=== PATIENT | female | born 1980 | race Caucasian/White ===

== ENCOUNTER 2017-11-25 09:15 | Inpatient (IN) | payer OTHER, SELFPAY ==
[~2017-11-25] VITALS: Ht 165.1 cm; Wt 99.0 kg
[~2017-11-25 09:15] MED LIST: PRENATABS RX T1 EACH PO
--- NOTE | 2017-12-03 07:36 | NUR ---
12/03/17 0736 Ena Massey REPORT FROM DIRECTOR OF ANALYTICAL DEVELOPMENT.
--- NOTE | 2017-12-03 19:30 | NUR ---
Jello given. Second liter of 1/2 NS finished infusing and replaced with LR at TKO.
--- NOTE | 2017-12-04 09:28 | PR ---
[facility] [address] [facility] [place] [address] Signed PP Progress Notes Datetime Report Generated by CPN: 12/04/2017 09:28 SUBJECTIVE: [id number] Pain: Within normal limits Nausea/Vomiting: Denies Vital Signs: [id number] Vital Signs: Reviewed; Within Normal Limits Notable Details: PP Hgb/Hct = 90./26.6 EXAM: [id number] Abdomen/Uterus: Normal Lochia: Normal Extremities: Normal Incision: Normal IMPRESSION/PLAN/PROCEDURES: [id number] Impression: Normal progression Plan: Continue present management Procedures: None Progress Notes: Doing well, up moving, voiding, without complaint. Signing Physician: Aries Soliman MD CC: *Electronically Signed* 12/04/17 0928 ARIES SOLIMAN MD PATIENT NAME: LAKISHA MARION PROGRESS NOTE DATE OF : 79 PHYSICIAN: ARIES SOLIMAN MD RPT #: [id number] REPORT IS CONFIDENTIAL AND NOT TO BE RELEASED WITHOUT AUTHORIZATION
--- NOTE | 2017-12-04 14:21 | NUR ---
CHECKED ON PT AND FAMILY. BABY SLEEPING SOUNDLY, PT TRYING TO SLEEP, HAS NOT BEEN VERY SUCCESSFUL. AKI GRAMAJO CAME TO TAKE BABY FOR ROUTINE CHECKS, HAD PRAYER WITH PT. WILL FOLLOW NEEDED
--- NOTE | 2017-12-05 10:47 | OR ---
[facility] [address] [facility] [place], [place] [address] Signed DATE OF OPERATION: 12/03/2017 SURGEON: Torsten Guillory MD Patient of Dr. Guillory. PREOPERATIVE DIAGNOSIS: Term , previous section x2. POSTOPERATIVE DIAGNOSIS: Term , previous section x2. PROCEDURE: Repeat low transverse segment section, delivery of live female . PROMOTION OFFICER: Dr. Valdez ANESTHESIA: Spinal. ESTIMATED BLOOD LOSS: 700 mL. COMPLICATIONS: None. DRAINS: Mantilla to bladder. FINDINGS: Live female , Apgars 8 and 9. Weight 7 pounds 4 ounces. Baby in transverse lie with head to the right and backup. Bladder was slightly elevated up to the lower uterine segment. Normal tubes and ovaries bilateral. There was a small peritoneal adhesion on the left lower uterine segment from the bladder flap, otherwise no adhesions present. DESCRIPTION OF PROCEDURE: The patient was brought into the operating room and placed in the supine position. After adequate spinal anesthesia was obtained, she was prepped and draped in usual sterile fashion. A Mantilla catheter was placed in the bladder. A Pfannenstiel skin incision was Electronically Signed By: TORSTEN GUILLORY MD 12/05/17 1047 PATIENT NAME: LAKISHA MARION OPERATIVE REPORT DATE OF : 79 PHYSICIAN: TORSTEN GUILLORY MD REPORT #: [id number] REPORT IS CONFIDENTIAL AND NOT TO BE RELEASED WITHOUT AUTHORIZATION [facility] [address] [place], [place] [address] Signed made through previous surgical scar. Using a scalpel, subcutaneous tissue was dissected with the Bovie. The fascia was nicked with scalpel and extended in transverse fashion. Using curved scissors, the underlying abdominal musculature was bluntly and sharply from the fascia above and below the incision. The abdominal musculature was bluntly and sharply along the midline. The peritoneum was grasped with hemostats, elevated, nicked with Metzenbaum scissors and extended in vertical fashion using Metzenbaum scissors. The David self-retaining retractor was inserted into the incision and tightened in place. The above findings were noted. A small band of bladder flap peritoneum on the left side was cut down with Metzenbaum scissors and the vesicouterine peritoneum elevated with smooth pickups and nicked in the midline and extended in transverse fashion to help lower the bladder somewhat off the lower uterine segment. Baby was noted to be in transverse lie. The lower segment above the bladder did appear wide enough, so a small incision was made in the lower uterine segment above the bladder in the midline using a scalpel and finger dissection used to extend the incision in transverse fashion. again was noted to be in transverse lie with the head on the right and the back up. The arm and cord came through the incision. Once it was opened, an attempt was made to grasp the head and deliver the by head first, but head would not come down, so arm and cord were pushed back up into the fundus and one foot was grasped and carefully brought in the field. The other foot was then identified and brought into the incision and the infant delivered in breech fashion up to the level of the shoulders with the back up now. The arms were individually delivered and the head easily followed. The cord was doubly clamped and cut while the mouth and nose were suctioned with a bulb syringe. The was passed off table in good condition awaiting nurse. The placenta was manually removed and uterine cavity explored the lap pad to remove any retained membranes. Angled stitch of 0 Monocryl was placed in one end of the incision and running locking stitch of 0 Monocryl starting at the other end used to close the incision. The left side did extend all the way to the uterine vessels and so additional stitches were needed on the left angle. This was done by placing hand behind the uterus against the broad ligament to make sure the needle did not pass through and injure any bowel or pelvic structures. Several eluzbz-bs-sowka stitches were used to control the bleeding in the left angle. Second running locking stitch of 0 Monocryl was used to then imbricate the first layer. The entire incision was examined. There was still some bleeding in the midline and several eccyxj-kj-nmxfl stitch of 0 Monocryl suture were used to control this bleeding. The right angle also had small amount of bleeding which was controlled with again by putting hand behind the broad ligament making sure the needle did not go through and through. Did close and control the bleeding in the right angle. Once good hemostasis was obtained, the entire pelvis was irrigated, suctioned and examined. Any superficial bleeding spots were cauterized with the Bovie. The incision was again examined then and now had good hemostasis. The David retractor was removed. The incision again irrigated, suctioned, examined and noted to have good hemostasis, but several raw areas, so Evicel was placed all along the uterine incision to help with further hemostasis. Sheet of ACell was placed over the lower uterine segment Electronically Signed By: TORSTEN GUILLORY MD 12/05/17 1047 PATIENT NAME: LAKISHA MARION OPERATIVE REPORT DATE OF : 78 PHYSICIAN: TORSTEN GUILLORY MD REPORT #: [id number] REPORT IS CONFIDENTIAL AND NOT TO BE RELEASED WITHOUT AUTHORIZATION [facility] [address] [place], [place] [address] Signed to help with healing. The anterior wall peritoneum was then closed using a running stitch of 2-0 Vicryl suture. The abdominal musculature was reapproximated using interrupted stitches of 0 Vicryl suture. The abdominal wall was then irrigated, suctioned and examined. Any bleeding spots cauterized with the Bovie. Powdered ACell sprinkled on the abdominal musculature and then the fascia closed using two running stitches of 0 Vicryl suture meeting in the midline. Subcutaneous tissue was irrigated, suctioned and examined. Any bleeding spots cauterized with the Bovie. The remaining powdered ACell sprinkled on subcutaneous tissue, which was then closed using interrupted stitches of 3-0 Vicryl suture. The skin was reapproximated using skin clips. The patient tolerated the procedure well and went to the recovery room in good condition. The sponge, needle, and instrument counts were correct at the end of the procedure. MD CHANDAN Art/MODL /[id number] Electronically Signed By: TORSTEN GUILLORY MD 12/05/17 1047 PATIENT NAME: LAKISHA MARION OPERATIVE REPORT DATE OF : 78 PHYSICIAN: TORSTEN GUILLORY MD REPORT #: [id number] REPORT IS CONFIDENTIAL AND NOT TO BE RELEASED WITHOUT AUTHORIZATION
--- NOTE | 2017-12-05 10:51 | PR ---
[facility] [address] [place] [address] Signed PP Progress Notes Datetime Report Generated by CPN: 12/05/2017 10:51 SUBJECTIVE: [id number] Pain: Within normal limits Nausea/Vomiting: Denies Vital Signs: [id number] Vital Signs: Reviewed; Within Normal Limits Notable Details: PP Hgb/Hct = 9.0/26.6 EXAM: [id number] Abdomen/Uterus: Normal Lochia: Normal Extremities: Normal Incision: Normal IMPRESSION/PLAN/PROCEDURES: [id number] Impression: Normal progression Plan: Discharge Procedures: None Progress Notes: Doing well, without compalint, ready to go home. Signing Physician: Aries Soliman MD CC: *Electronically Signed* 12/05/17 1051 ARIES SOLIMAN MD PATIENT NAME: LAKISHA MARION PROGRESS NOTE DATE OF : 79 PHYSICIAN: ARIES SOLIMAN MD RPT #: [id number] REPORT IS CONFIDENTIAL AND NOT TO BE RELEASED WITHOUT AUTHORIZATION
== END 2017-12-05 14:05 | disposition home or self-care (01) | DRG 766 ==
LOC: FBC 12-03 05:50
PROVIDERS: ADMIT General Practice
PROC: 10D00Z1 Extraction of Products of Conception, Low, Open Approach (ICD-10-PCS; principal; 2017-12-03 06:45)
DX: O34.211 Maternal care for low transverse scar from previous cesarean delivery (principal); N85.8 Other specified noninflammatory disorders of uterus; O32.2XX0 Maternal care for transverse and oblique lie, not applicable or unspecified; O99.824 Streptococcus B carrier state complicating childbirth; O99.89 Other specified diseases and conditions complicating pregnancy, childbirth and the puerperium; M76.32 Iliotibial band syndrome, left leg; Z86.59 Personal history of other mental and behavioral disorders; Z3A.39 39 weeks gestation of pregnancy; Z37.0 Single live birth
CPT/HCPCS: 01961; 36415; 85027; C1763; J0690; J1170; J1200; J2274; J2370; J2405; J2590; J3010; J7120

== ENCOUNTER 2020-11-11 09:28 | Emergency (ER) | payer OTHER ==
[~2020-11-11] VITALS: Ht 165.1 cm; Wt 93.0 kg
[~2020-11-11 09:28] MED LIST changes: +IBUPROFEN600 MG PO; +OFIRMEV1000 MG/10 IV; +OXYCODON-ACETA1 EAC2 PO; +TYLENOL EXTRA500 MG PO; +ZOFRAN4 MG PO
[2020-11-11] MEDS ORDERED: ONDANSETRON ODT8 MG PO (12:49)
[2020-11-11] MEDS ORDERED: PERCOCET 7.5-31 EACH PO (12:49)
== END 2020-11-11 13:30 | disposition home or self-care (01) ==
LOC: ED 09:28
DX: S89.302A Unspecified physeal fracture of lower end of left fibula, initial encounter for closed fracture (principal); W00.0XXA Fall on same level due to ice and snow, initial encounter; Z87.891 Personal history of nicotine dependence
CPT/HCPCS: 27788; 73610; 99152; 99283-25; J1170; J2405; J2704; J7030

== ENCOUNTER 2020-11-14 08:59 | Day surgery (SDC) | payer OTHER ==
[~2020-11-14] VITALS: Ht 165.1 cm; Wt 90.9 kg
[~2020-11-14 08:59] MED LIST changes: +ONDANSETRON ODT8 MG PO; +PERCOCET 7.5-31 EACH PO
[2020-11-14] MEDS ORDERED: ADVIL200 MG PO (09:23)
--- NOTE | 2020-11-14 09:49 | NUR ---
COVID SWAB OBTAINED , SENT TO [facility] FOR RAPID TESTING, NO COMPLICATIONS
--- NOTE | 2020-11-14 11:28 | NUR ---
OC 1120: CHECKED ON PT, SHE REPORTS THAT SHE WOULD LIKE TO GET UP AND USE THE RESTROOM. SHE IS SET UP WITH A BEDSIDE COMMODE. SHE IS ABLE TO TRANSFER HERSELF FROM BED TO COMMODE, THEN BACK TO BED.
[2020-11-14] MEDS ORDERED: PERCOCET 7.5-31 EACH PO (14:18)
--- NOTE | 2020-11-14 15:12 | NUR ---
PT IS BACK TO FROM PACU. SHE IS C/O A HEADACHE. RATING THE PAIN IN HER ANKLE A 4/10. SHE IS TOLERATING WATER. CALL LIGHT WITHIN REACH. NO ADDITIONAL. NEEDS AT THIS TIME.
--- NOTE | 2020-11-14 15:19 | NUR ---
11/14/20 1519 Ramone,Ligia 1411 PT ARRIVED TO PACU ON 6L VIA MASK, PT MOVING ARMS AND GRABBING AT FACE. RN TRYING TO REORIENT PT TO PACU. VSS. RESP EVEN AND UNLABORED. 1412 PT PULLS O2 MASK OFF HER FACE, O2 SAT 100%.
--- NOTE | 2020-11-14 15:38 | NUR ---
OC 1525: PT IS GIVEN JELLO AND CRACKERS. SHE IS HELPED UP OOB TO BEDSIDE COMMODE WHERE SHE VOIDS QS. SHE IS HELPED BACK INTO BED. IS AT THE BEDSIDE.
--- NOTE | 2020-11-14 15:40 | NUR ---
PT ALERT, ORIENTED AND SUPPORTED BY HER BRIAN. PT IS DISCOURAGED T ACCIDENT, AND IS ENCOURAGING. ANSWERED ALL QUESTIONS ASKED. RT ALEN INTO DO RAPID COVID TEST. PT TOLERATED WELL. GAVE COMFORT, PT REQUESTED I HAVE PRAYER WITH THEM. WILL FOLLOW NEEDED
--- NOTE | 2020-11-14 16:10 | NUR ---
PT HAS MET DC CRITERIA. SHE WOULD LIKE TO GO HOME AT THIS TIME.
--- NOTE | 2020-11-14 16:31 | NUR ---
PT IS GIVEN VERBAL DC INSTRUCTIONS, SHE VERBALIZES UNDERSTANDING. NO QUESTIONS OR CONCERNS AT THIS TIME. SHE IS TAKEN TO VEHICLE VIA WC, SHE IS ABLE TO TRANSFER HERSELF FROM WC TO VEHICLE.
--- NOTE | 2020-11-16 07:46 | OR ---
[facility] [address] [place], [place] [address] Signed DATE OF OPERATION: 11/14/2020 SURGEON: Dariel Riggins MD PREOPERATIVE DIAGNOSES: Left ankle fracture dislocation. POSTOPERATIVE DIAGNOSIS: Left ankle fracture dislocation. PROCEDURE PERFORMED: Open reduction and internal fixation of left ankle, bimalleolar. FACILITIES OPERATIONS TECHNICIAN: None. ANESTHESIA: General. TOURNIQUET TIME: 50 minutes. IMPLANT: Seven hole one-third tubular plate with 10 screws. BRIEF HISTORY: Karen is a 40-year-old female with a painful dislocation of her ankle. This was partially reduced but not completely in the ER. She presented to our clinic. Risks and benefits of operative treatment were discussed with her and she elected to proceed. DESCRIPTION OF PROCEDURE: Once consent was obtained, she was taken to the operating room after adequate anesthesia and she was placed on the operating table. All downside pressure points were well padded and hip bump was placed. The legs were placed in well-padded proximal thigh tourniquet. It should also be noted that she had about 15 to 20 degrees of hyperextension at the knee which may set her up for further injuries. Once the leg was prepped and draped in a standard sterile fashion, we exsanguinated the leg using Esmarch bandage. Tourniquet inflated to 250 mmHg. Standard lateral approach was made to the fibula, taken through the skin and subcutaneous tissue. The fracture was distracted and cleaned of soft tissue debris and reduced and clamped. We were able to get it clamped Electronically Signed By: DARIEL RIGGINS MD 11/16/20 0746 PATIENT NAME: KAREN MARION OPERATIVE REPORT DATE OF : 78 REPORT #: [id number] PHYSICIAN: DARIEL RIGGINS MD PCP: LITTLE LORENZANA PA-C REPORT IS CONFIDENTIAL AND NOT TO BE RELEASED WITHOUT AUTHORIZATION [facility] [address] [place], [place] [address] Signed in anatomic position and placed a standard AO lag screw from anterior to posterior. The clamp was then removed. A seven hole plate was fashioned to fit the lateral malleolus and held with the central screw. This was checked using image intensifier and found to be adequately positioned. The screws were placed and the two distal screws were done with locking screws. Attention was then turned to the posterior malleolus. It was displaced and of a significant size. We then went behind the fibula and dissected back to the posterior tibia. We then placed a percutaneous clamp on the posterior tibia and placed a stab incision anteriorly. The posterior malleolus was worked into position and clamped with the large tenaculum. Two screws were then placed from anterior to posterior, securing the posterior malleolus in near-anatomic reduction. Wound was then copiously irrigated. The lateral wound was closed deep using 3-0 Monocryl, subcutaneous tissue with 3-0 Monocryl and 2-0 nylon for the skin incisions. Wounds were dressed with Acticoat dressing, and Kameron wrap and she was placed in a fracture boot, taken to the recovery room in satisfactory condition. All sponge, needle, and instrument counts were correct. Dariel Riggins MD BA/MODL /[id number] Copies: ~ Electronically Signed By: DARIEL RIGGINS MD 11/16/20 0746 PATIENT NAME: KAREN MARION OPERATIVE REPORT DATE OF : 78 REPORT #: [id number] PHYSICIAN: DARIEL RIGGINS MD PCP: LITTLE LORENZANA PA-C REPORT IS CONFIDENTIAL AND NOT TO BE RELEASED WITHOUT AUTHORIZATION
== END 2020-11-14 16:25 | disposition home or self-care (01) ==
LOC: DS 08:59
PROVIDERS: ATTEND Specialist
PROC: 0QSH04Z Reposition Left Tibia with Internal Fixation Device, Open Approach (ICD-10-PCS; 2020-11-14)
PROC: 3E0T3BZ Introduction of Anesthetic Agent into Peripheral Nerves and Plexi, Percutaneous Approach (ICD-10-PCS; 2020-11-14)
PROC: 3E0T33Z Introduction of Anti-inflammatory into Peripheral Nerves and Plexi, Percutaneous Approach (ICD-10-PCS; 2020-11-14)
PROC: 0QSK04Z Reposition Left Fibula with Internal Fixation Device, Open Approach (ICD-10-PCS; principal; 2020-11-14 12:00)
DX: S82.842A Displaced bimalleolar fracture of left lower leg, initial encounter for closed fracture (principal); G89.18 Other acute postprocedural pain; W01.0XXA Fall on same level from slipping, tripping and stumbling without subsequent striking against object, initial encounter; Z79.1 Long term (current) use of non-steroidal anti-inflammatories (NSAID); Z87.891 Personal history of nicotine dependence
CPT/HCPCS: 01480; 64445; 64447; 73600; 76942; 84703; C1713; C9803; J1100; J2001; J2250; J2405; J2704; J2795; J3010; J3370; J7060; J7121; U0003

== ENCOUNTER 2023-11-13 06:25 | Day surgery (SDC) | payer OTHER ==
[2023-11-10 16:22] VITALS: BP 131/88
[~2023-11-13] VITALS: Ht 165.1 cm; Wt 93.2 kg
[~2023-11-13 06:25] MED LIST changes: +ADVIL200 MG PO; +PREDNISONE20 MG PO
[2023-11-13 06:38] VITALS: BP 128/74
[2023-11-13] MEDS ORDERED: HYDROCODON-ACE1 EA10 PO (09:35)
[2023-11-13] MEDS ORDERED: DICLOFENAC SODI75 MG PO (09:35)
[2023-11-13 10:01] VITALS: BP 107/77
--- NOTE | 2023-11-16 07:02 | OR ---
[facility] [address] [facility] [place], [place] [address] Signed DATE OF OPERATION: 11/13/2023 SURGEON: Dariel Riggins MD PREOPERATIVE DIAGNOSIS: Painful hardware, left ankle. POSTOPERATIVE DIAGNOSIS: Painful hardware, left ankle. PROCEDURE PERFORMED: Removal of hardware deep, left ankle. DETENTION DEPUTY: None. ANESTHESIA: General. TOURNIQUET TIME: 18 minutes. BLOOD LOSS: None. BRIEF HISTORY: Karen is a 43-year-old female with had an ankle fracture and underwent open reduction and internal fixation with syndesmosis fixation. She healed uneventfully, but had painful hardware laterally. Risks and benefits of removal were discussed with her and she elected to proceed. DESCRIPTION OF PROCEDURE: Once consent was obtained, she was taken to the operating room. After adequate anesthesia, she was placed on the operating room table. All downside pressure points were well padded. The leg was placed in a well-padded proximal thigh tourniquet. She was prepped and draped in a standard sterile fashion and exsanguinated using Esmarch bandage. Tourniquet inflated to 250 mmHg. A prior incision was marked out laterally, carried through the skin and subcutaneous tissue and directly down the hardware. The scar tissue was peeled off the hardware and the screw heads were cleaned. The six screws in the plate were removed as was the button for the syndesmosis fixation. The Electronically Signed By: DARIEL RIGGINS MD 11/16/23 0702 PATIENT NAME: KAREN MARION OPERATIVE REPORT DATE OF : 78 REPORT #: [id number] PHYSICIAN: DARIEL RIGGINS MD PCP: LITTLE LORENZANA PA-C REPORT IS CONFIDENTIAL AND NOT TO BE RELEASED WITHOUT AUTHORIZATION [address] [place], [place] [address] Signed anterior screw was also removed. The screw holes were curetted and irrigated with normal saline. It was then closed in layers using 3-0 Monocryl and 3-0 Stratafix. Wound was sealed with LiquiBand and Steri-Strips. Wound was dressed with Allevyn and an Kameron wrap. She tolerated the procedure well. All sponge, needle, and instrument counts were correct. Dariel Riggins MD BA/JESUL /[id number] Copies: ~ Electronically Signed By: DARIEL RIGGINS MD 11/16/23 0702 PATIENT NAME: KAREN MARION OPERATIVE REPORT DATE OF : 78 REPORT #: [id number] PHYSICIAN: DARIEL RIGGINS MD PCP: LITTLE LORENZANA PA-C REPORT IS CONFIDENTIAL AND NOT TO BE RELEASED WITHOUT AUTHORIZATION
== END 2023-11-13 10:10 | disposition home or self-care (01) ==
LOC: DS 06:25
PROVIDERS: ATTEND Specialist
PROC: 0SPG04Z Removal of Internal Fixation Device from Left Ankle Joint, Open Approach (ICD-10-PCS; principal; 2023-11-13 08:25)
DX: T84.84XA Pain due to internal orthopedic prosthetic devices, implants and grafts, initial encounter (principal); Y79.2 Prosthetic and other implants, materials and accessory orthopedic devices associated with adverse incidents; S82.842S Displaced bimalleolar fracture of left lower leg, sequela
CPT/HCPCS: 01462; 64445; 76942; 84703; J0131; J0690; J1100; J1885; J2001; J2250; J2405; J2704; J2795; J3010; J3490; J7121